=== PATIENT | male | born 1955 | race Caucasian/White ===

== ENCOUNTER 2020-12-14 22:34 | Inpatient (IN) | payer OTHER ==
[~2020-12-14] VITALS: Ht 180.3 cm; Wt 68.9 kg
[~2020-12-14 22:34] MED LIST: ASPIRIN EC81 MG PO; COREG 12.5MG12.5 MG PO; COREG 3.125M3.125 MG PO; HYDRALAZINE HCL25 MG PO; HYDRALAZINE HCL50 MG PO; IMDUR ER TAB 3030 MG PO; K-DUR TAB 20 M20 MEQ PO; LASIX40 MG PO; LIPITOR TAB 2020 MG PO; NEURONTIN 400400 MG PO; NITROSTAT0.4 MG SL; NORVASC10 MG PO; PLAVIX 75 MG TA75 MG PO; PRINIVIL5 MG PO; PROTONIX40 MG PO
[2020-12-15 12:43] LABS: HEMOGLOBIN 12.2 gm/dl (14.0-17.5); RED BLOOD COUNT 3.76 M/UL (4.20-5.50); WHITE BLOOD COUNT 5.8 K/UL (4.5-11.0)
[2020-12-15 13:05] LABS: BUN/CREATININE RATIO 24 (0-10)
[2020-12-16 02:10] LABS: HEMOGLOBIN 11.5 gm/dl (14.0-17.5); RED BLOOD COUNT 3.61 M/UL (4.20-5.50); WHITE BLOOD COUNT 4.8 K/UL (4.5-11.0)
[2020-12-16 02:40] LABS: BUN/CREATININE RATIO 28 (0-10)
[2020-12-16] MEDS ORDERED: LASIX20 MG PO (15:41)
[2020-12-16] MEDS ORDERED: LOPRESSOR 25 MG25 MG PO (15:42)
[2020-12-16] MEDS ORDERED: ZESTRIL5 MG PO (15:42)
[2020-12-17 03:37] LABS: RED BLOOD COUNT 3.73 M/UL (4.20-5.50); WHITE BLOOD COUNT 3.8 K/UL (4.5-11.0)
--- NOTE | 2020-12-18 03:46 | NUR ---
pt up in room obando cath pulled out. iv tubing pulled apart obando ballon deflated and obando ripped appart also. pt stated he woke up confused and did not know where he was and just took everything off. pt oriented and aware now x4. pt refusing for obando to be replaced at this time states he will try to use urinal for now.
[2020-12-18 04:39] LABS: HEMOGLOBIN 10.9 gm/dl (14.0-17.5); RED BLOOD COUNT 3.42 M/UL (4.20-5.50); WHITE BLOOD COUNT 4.2 K/UL (4.5-11.0)
--- NOTE | 2020-12-18 17:36 | NUR ---
PT IS REFUSING URINAL.
[2020-12-19 04:32] LABS: HEMOGLOBIN 11.4 gm/dl (14.0-17.5); RED BLOOD COUNT 3.6 M/UL (4.20-5.50); WHITE BLOOD COUNT 3.5 K/UL (4.5-11.0)
[2020-12-20 04:52] LABS: HEMOGLOBIN 10.8 gm/dl (14.0-17.5); RED BLOOD COUNT 3.41 M/UL (4.20-5.50); WHITE BLOOD COUNT 3.5 K/UL (4.5-11.0)
[2020-12-22 03:40] LABS: HEMOGLOBIN 11.7 gm/dl (14.0-17.5); RED BLOOD COUNT 3.69 M/UL (4.20-5.50); WHITE BLOOD COUNT 4.3 K/UL (4.5-11.0)
[2020-12-23 03:16] LABS: HEMOGLOBIN 10.9 gm/dl (14.0-17.5); RED BLOOD COUNT 3.43 M/UL (4.20-5.50); WHITE BLOOD COUNT 3.4 K/UL (4.5-11.0)
--- NOTE | 2020-12-23 15:23 | NUR ---
PATIENT IS REFUSING TO HAVE BILATERAL LOWER EXTREMITIES WRAPPED IN YAMILEX WRAP
--- NOTE | 2020-12-23 22:01 | NUR ---
BEFORE 1999 DR HOOPER CAME BY TWICE TO SEE THE PT AND THE PT WASN'T IN THE ROOM; I TOLD DR HOOPER THE PT STAYS OUT OF THE ROOM MORE THAN HE STAYS IN THE ROOM; WHICH DR HOOPER IS AWARE OF. AT APPROX 2130 I WENT INTO THE PTS ROOM TO GIVE HIM HIS NIGHTTIME MEDICATION AND HE WASN'T IN THE ROOM. THE BATHROOM DOOR WAS CLOSED SO I DECIDED TO CHECK IN THERE AND SEE IF HE WAS IN THERE. THE BATHROOM DOOR WAS LOCKED. I POUNDED ON THE DOOR AND I COULD HEAR THE PT IN THERE TALKING AND MUMBLING AND WHAT SOUNDED LIKE HE WAS MOVING THINGS AROUND. I HAD THE RESIDENTIAL MONITOR THAT WAS SITTING WITH ANOTHER PT COME AND UNLOCK THE DOOR FOR ME. THE PT WAS SITTING IN THE FLOOR ASLEEP. THE PT DID RESPOND TO VERBAL STIMULI HE WOKE UP ENOUGH TO TALK TO ME THEN WENT STRAIGHT BACK TO SLEEP. I CALLED THE INSPECTOR MATERIALS AND PROCESSES AND HAD HIM COME TO THE ROOM AND HELP ME LIFT THE PT TO THE FLOOR AND GET HIM TO THE BED. HE WOKE UP ENOUGH TO TALK SOME MORE WE GOT HIM UP AND THEN HE WENT RIGHT BACK TO SLEEP WHILE WALKING. THE INSPECT[employer] AND I MANAGED TO GET HIM TO THE BED AND GOT HIM INTO THE BED. THE INSPECTOR [employer]S [employer] PROC[employer]ES CHECKED HIS VITALS WHICH WERE FOLLOWS: HR 81, O2 99%, TEMP 97.6, BP 94/65 I THEN CALLED [facility] TO EXPLAIN THE SITUATION TO HER AND THEN CALLED THE DR DIESEL ENGINE ENGINEER DR BROWN. I EXPLAINED THE SITUATION TO HIM, RELAYED TO HIM THAT I FELT LIKE HE COULD BE TAKING SOME KIND OF MEDICATION ON HIS OWN DUE TO THE LETHARGY. HE ORDERED A UDS AND FOR THE PT TO BE CLOSE TO THE NURSES STATION IF NOT ALREADY AND A SITTER. HE ALSO STATED FOR THE PT NOT TO BE ALLOWED TO LEAVE HIS ROOM AND GO DOWNSTAIRS FOR THE DURATION OF HIS STAY. I CALLED THE SAP PORTAL CONSULTANT AND INFORMED HER WHAT DR. BROWN SAID. SECURITY CAN SIT WITH THE PT ONCE THE OB SITTER COMES AND SITS WITH THE PT IN 5123. WILL CONTINUE TO MONITOR THE PT.
--- NOTE | 2020-12-24 04:04 | NUR ---
PT PULLED OUT IV AND WILL NOT LET ANYONE START A NEW ONE. CANNOT GIVE ANY IV MEDICATIONS TO PT AT THIS TIME. SITTER AT BEDSIDE. PT MANIC AT THIS TIME; HE HAS BEEN RANTING AND HAVING DELUSIONS OF GRANDEUR FOR OVER 2 HRS NOW. [facility] FOR ANY CHANGES.
--- NOTE | 2020-12-24 08:56 | NUR ---
PATIENT WAS SMOKING IN THE BATHROOM, INFORMED AND INSTRUCTED OF SMOKING POLICY SECURITY WAS WATCHING PATIENT 1:1 FOR SAFETY REASONS. PATIENT WANTING TO GO OUTSIDE AND WHEN INFORMED HE IS TO STAY IN THE ROOM FOR HIS SAFETY REASONS PATIENT BECOMES VERBALLY ABUSIVE AND STATED HE WANTED TO LEAVE THE FACILITY. PATIENT ALERT AND AWAKE, ORIENTED X 3. PATIENT KNOWLEDGEDABLE OF THE SAFETY REASONS. HE REQUEST TO LEAVE AND SIGN AMA. VERIFIED OF HIS REQUEST TO LEAVE AND WAS INSTRUCTED OF THE RESULT OF LEAVING WITHOUT MEDICAL ADVICE BUT CONTINUE TO BE ARGUMENTATIVE OF WANTING TO LEAVE. NOTIFIED DR. ESTEBAN AND ACKNOWLEDGED.
== END 2020-12-24 10:18 | disposition left against medical advice (07) | DRG 281 ==
LOC: PROG CARE 12-15 10:11 → M/S 12-15 10:11
PROVIDERS: Internal Medicine; ADMIT Internal Medicine
PROC: B24BZZZ Ultrasonography of Heart with Aorta (ICD-10-PCS; principal; 2020-12-16)
DX: I11.0 Hypertensive heart disease with heart failure (principal); I21.A1 Myocardial infarction type 2; N17.9 Acute kidney failure, unspecified; L03.115 Cellulitis of right lower limb; I25.5 Ischemic cardiomyopathy; I50.43 Acute on chronic combined systolic (congestive) and diastolic (congestive) heart failure; I25.10 Atherosclerotic heart disease of native coronary artery without angina pectoris; J44.9 Chronic obstructive pulmonary disease, unspecified; E78.5 Hyperlipidemia, unspecified; I70.1 Atherosclerosis of renal artery; F17.210 Nicotine dependence, cigarettes, uncomplicated; D64.9 Anemia, unspecified; F19.11 Other psychoactive substance abuse, in remission; R21 Rash and other nonspecific skin eruption; E11.40 Type 2 diabetes mellitus with diabetic neuropathy, unspecified; R19.7 Diarrhea, unspecified; R31.9 Hematuria, unspecified; N40.0 Benign prostatic hyperplasia without lower urinary tract symptoms; Z91.19 Patient's noncompliance with other medical treatment and regimen; Z82.49 Family history of ischemic heart disease and other diseases of the circulatory system; Z95.1 Presence of aortocoronary bypass graft; Z88.2 Allergy status to sulfonamides; Z80.8 Family history of malignant neoplasm of other organs or systems; Z83.3 Family history of diabetes mellitus; Z95.820 Peripheral vascular angioplasty status with implants and grafts
CPT/HCPCS: ECHO; 36415; 71046; 80048; 80053; 80307; 81001; 82550; 82553; 83036; 83735; 83880; 84484; 85025; 85027; 93005; 93306; 93970; 94640; 94664; 94760; J1650; J1940; J2020; J2185; J2270